=== PATIENT | male | born 1950 | race Caucasian/White ===

== ENCOUNTER 2022-08-10 15:41 | Inpatient (IN) | payer OTHER ==
[2022-08-10] MEDS: ATORVASTATIN CA 80 MG TABLET (FP) PO SCH (10:00)
[2022-08-10 16:42] VITALS: BMI 23.3
[2022-08-10] MEDS ORDERED: guaiFENesin 600 MG TABLET.ER (FP) PO PRN (18:30)
[2022-08-10] MEDS ORDERED: ACETAMINOPHEN 325 MG TABLET (FP) PO PRN (18:30)
[2022-08-10] MEDS ORDERED: LOPERAMIDE HCL 2 MG CAPSULE PO PRN (18:30)
[2022-08-10] MEDS ORDERED: POLYETHYLENE GLYCOL (HEALTHYLAX) 3350 17 GM PACKET PO PRN (18:30)
[2022-08-10] MEDS ORDERED: BENZONATATE 200 MG CAPSULE PO PRN (18:30)
[2022-08-10] MEDS ORDERED: MAGNESIUM HYDROX 2400MG/30ML ORAL SUSPENSION 30 ML CUP PO PRN (18:30)
[2022-08-10] MEDS ORDERED: NALOXONE HCL (KLOXXADO) 8 MG SPRAY NS PRN (18:30)
[2022-08-10] MEDS ORDERED: NALOXONE HCL 0.4 MG/ML VIAL IM PRN (18:30)
[2022-08-10] MEDS ORDERED: P-EPHED 60MG/TRIPROLIDI 2.5MG TABLET PO PRN (18:30)
[2022-08-10] MEDS ORDERED: BENZOCAINE/MENTHOL (CHLORASEPTIC ) LOZENGE MM PRN (18:30)
[2022-08-10] MEDS ORDERED: ONDANSETRON *ODT* 4 MG TABLET SL PRN (18:30)
[2022-08-10] MEDS ORDERED: DICYCLOMINE HCL 10 MG CAPSULE PO PRN (18:30)
[2022-08-10] MEDS ORDERED: MAG HYDROX/AL HYDROX/SIMETH 30 ML UNIT-DOSE CUP PO PRN (18:30)
[2022-08-10] MEDS: MELATONIN 5 MG TABLETS PO PRN (22:07)
[2022-08-10] MEDS: CARVEDILOL 3.125 MG TABLET (FP) PO SCH (22:07)
[2022-08-10] MEDS: THIAMINE HCL 100 MG TABLET (FP) PO SCH (22:07)
[2022-08-11] MEDS: LISINOPRIL 10 MG TABLET PO SCH (09:17)
[2022-08-11] MEDS: CARVEDILOL 3.125 MG TABLET (FP) PO SCH ×2 (09:17→21:30)
[2022-08-11] MEDS: ASPIRIN COATED 81 MG TABLET.EC PO SCH (09:17)
[2022-08-11] MEDS: PRENATAL VITAMINS W/ FOLIC ACID TABLET (FP) PO SCH (09:17)
[2022-08-11] MEDS: TAMSULOSIN HCL 0.4 MG CAP PO SCH (09:17)
[2022-08-11 11:26] LABS: HEMATOCRIT 38.6 % (35.4-49); MCH 33.3 pg (25.7-33.7); MCHC 33.7 g/dl (32.0-35.9); MEAN CELL VOLUME 98.7 fl (80-96); MEAN PLT VOLUME 8.8 fl (7.5-11.1); PLATELET COUNT 210 10^3/uL (134-434); RBC 3.91 M/mm3 (4.00-5.60); RDW 14.2 % (11.9-15.9); WHITE BLOOD COUNT 6.1 K/mm3 (4.0-10.0)
[2022-08-11 11:36] LABS: POTASSIUM 4.5 mmol/L (3.5-5.1)
[2022-08-11 11:39] LABS: ALBUMIN 3.5 g/dl (3.4-5.0); CALCIUM 9.4 mg/dL (8.5-10.1)
[2022-08-11 11:42] LABS: CREATININE 0.7 mg/dL (0.55-1.3)
[2022-08-11 11:44] LABS: BILIRUBIN,TOTAL 0.5 mg/dL (0.2-1)
[2022-08-11 18:03] VITALS: RESP 18
[2022-08-11 21:19] VITALS: TEMP 97.3
[2022-08-11] MEDS: ATORVASTATIN CA 80 MG TABLET (FP) PO SCH (21:30)
[2022-08-11] MEDS: THIAMINE HCL 100 MG TABLET (FP) PO SCH (21:30)
[2022-08-11] MEDS: MELATONIN 5 MG TABLETS PO PRN (21:32)
[2022-08-11] MEDS ORDERED: CLOPIDOGREL BISULFATE 75 MG TABLET (FP) PO SCH (22:00)
[2022-08-12] MEDS: TAMSULOSIN HCL 0.4 MG CAP PO SCH (07:32)
[2022-08-12 08:57] VITALS: BP 115/81; PULSE 60
[2022-08-12] MEDS: CARVEDILOL 3.125 MG TABLET (FP) PO SCH (09:54)
[2022-08-12] MEDS: PRENATAL VITAMINS W/ FOLIC ACID TABLET (FP) PO SCH (09:54)
[2022-08-12] MEDS: LISINOPRIL 10 MG TABLET PO SCH (09:54)
[2022-08-12] MEDS: ASPIRIN COATED 81 MG TABLET.EC PO SCH (09:54)
== END 2022-08-12 11:41 | disposition home or self-care (01) | DRG 897 ==
LOC: YASAS 15:41 → Y3N 18:45 → UNDOADMIN 18:45 → UNDODISIN 08-12 11:41
PROVIDERS: ADMIT Allergy & Immunology; ATTEND Surgery
PROC: HZ2ZZZZ Detoxification Services for Substance Abuse Treatment (ICD-10-PCS; principal; 2022-08-10)
DX: F10.20 Alcohol dependence, uncomplicated (principal); F17.210 Nicotine dependence, cigarettes, uncomplicated; I25.10 Atherosclerotic heart disease of native coronary artery without angina pectoris; I10 Essential (primary) hypertension; N40.0 Benign prostatic hyperplasia without lower urinary tract symptoms; R73.03 Prediabetes; Z88.0 Allergy status to penicillin; Z88.6 Allergy status to analgesic agent
CPT/HCPCS: 36415; 80053; 85027; 86780; C9803-CS; U0003; U0005

== ENCOUNTER 2023-11-22 12:21 | Inpatient (IN) | payer OTHER ==
[2023-11-22 14:12] VITALS: BMI 24.2
[2023-11-22] MEDS ORDERED: METHOCARBAMOL 500 MG TABLET PO PRN (17:43)
[2023-11-22] MEDS ORDERED: guaiFENesin 600 MG TABLET.ER (FP) PO PRN (17:43)
[2023-11-22] MEDS ORDERED: NALOXONE HCL 0.4 MG/ML VIAL IM PRN (17:43)
[2023-11-22] MEDS ORDERED: IBUPROFEN 600 MG TABLET (FP) PO PRN (17:43)
[2023-11-22] MEDS ORDERED: POLYETHYLENE GLYCOL (HEALTHYLAX) 3350 17 GM PACKET PO PRN (17:43)
[2023-11-22] MEDS ORDERED: BISMUTH SUBSALICYLATE 524 MG/30 ML PO PRN (17:43)
[2023-11-22] MEDS ORDERED: BENZONATATE 200 MG CAPSULE PO PRN (17:43)
[2023-11-22] MEDS ORDERED: NALOXONE (NARCAN) HCL 4 MG/0.1 ML SPRAY NS PRN (17:43)
[2023-11-22] MEDS ORDERED: LOPERAMIDE HCL 2 MG CAPSULE PO PRN (17:43)
[2023-11-22] MEDS ORDERED: MAG HYDROX/AL HYDROX/SIMETH 30 ML UNIT-DOSE CUP PO PRN (17:43)
[2023-11-22] MEDS ORDERED: ACETAMINOPHEN 325 MG TABLET (FP) PO PRN (17:43)
[2023-11-22] MEDS ORDERED: ONDANSETRON *ODT* 4 MG TABLET SL PRN (17:43)
[2023-11-22] MEDS ORDERED: MAGNESIUM HYDROX 2400MG/30ML ORAL SUSPENSION 30 ML CUP PO PRN (17:43)
[2023-11-22] MEDS ORDERED: DICYCLOMINE HCL 10 MG CAPSULE PO PRN (17:43)
[2023-11-22] MEDS ORDERED: BENZOCAINE/MENTHOL (CHLORASEPTIC ) LOZENGE MM PRN (17:43)
[2023-11-22] MEDS ORDERED: IBUPROFEN 400 MG TABLET (FP) PO PRN (17:43)
[2023-11-22] MEDS ORDERED: MELATONIN 5 MG TABLETS ONE (21:27)
[2023-11-22] MEDS: ATORVASTATIN CA 80 MG TABLET (FP) PO SCH (21:28)
[2023-11-22] MEDS: MELATONIN 5 MG TABLETS PO SCH (21:28)
[2023-11-22] MEDS: THIAMINE 100 MG TABLET PO SCH (21:28)
[2023-11-22] MEDS: CLOPIDOGREL BISULFATE 75 MG TABLET (FP) PO SCH (21:36)
[2023-11-22] MEDS: CARVEDILOL 3.125 MG TABLET (FP) PO SCH (21:41)
[2023-11-23 09:23] LABS: HEMATOCRIT 40.9 % (35.4-49); HEMOGLOBIN 14.1 GM/dL (11.7-16.9); MCH 33.8 pg (25.7-33.7); MCHC 34.4 g/dl (32.0-35.9); MEAN CELL VOLUME 98.5 fl (80-96); MEAN PLT VOLUME 8.1 fl (7.5-11.1); PLATELET COUNT 224 10^3/uL (134-434); RBC 4.15 M/mm3 (4.00-5.60); RDW 14.5 % (11.9-15.9); WHITE BLOOD COUNT 6.2 K/mm3 (4.0-10.0)
[2023-11-23 09:26] LABS: CHLORIDE 106 mmol/L (98-107); POTASSIUM 5.1 mmol/L (3.5-5.1); SODIUM 140 mmol/L (136-145)
[2023-11-23 09:38] LABS: ALBUMIN 3.5 g/dl (3.4-5.0); ANION GAP 4 mmol/L (4-13); BLOOD UREA NITROGEN 7.4 mg/dL (7-18); CALCIUM 9.3 mg/dL (8.5-10.1); CO2 30 mmol/L (21-32); GLUCOSE,RANDOM 100 mg/dL (74-106); SGOT/AST 15 U/L (15-37); SGPT/ALT 18 U/L (13-61)
[2023-11-23 09:40] LABS: BILIRUBIN,TOTAL 0.6 mg/dL (0.2-1); TOT PROT 6.6 g/dl (6.4-8.2)
[2023-11-23 09:41] LABS: ALK PHOS 63 U/L (45-117); CREATININE 0.7 mg/dL (0.55-1.3)
[2023-11-23] MEDS: ASPIRIN COATED 81 MG TABLET.EC PO SCH (10:27)
[2023-11-23] MEDS ORDERED: PRENATAL VITAMINS W/ FOLIC ACID TABLET (FP) PO ONE (10:56)
[2023-11-23] MEDS ORDERED: LISINOPRIL 10 MG TABLET ONE (10:56)
[2023-11-23] MEDS: LISINOPRIL 10 MG TABLET PO SCH (11:04)
[2023-11-23] MEDS: PRENATAL VITAMINS W/ FOLIC ACID TABLET (FP) PO SCH (11:04)
[2023-11-24] MEDS: hydrOXYzine PAMOATE 25 MG CAPSULE (FP) PO PRN (09:13)
[2023-11-24] MEDS: ACAMPROSATE CALCIUM 333 MG TABLET.DR PO SCH (22:14)
[2023-11-25] MEDS: TAMSULOSIN HCL 0.4 MG CAP PO SCH (09:16)
[2023-11-25] MEDS ORDERED: DORZOLAMIDE HCL/TIMOLOL OPHTHALMIC SOLUTION 10 ML BOTTLE OU SCH (10:00)
[2023-11-25] MEDS: TIMOLOL 0.5% OPHTHALMIC SOL 5 ML BOTTLE OU SCH (10:45)
[2023-11-25] MEDS: DORZOLAMIDE 2% HCL OPHTHALMIC SOLUTION 10 ML BOTTLE OU SCH (10:57)
[2023-11-25 18:02] VITALS: BP 146/60; PULSE 65; RESP 17; TEMP 97.7
== END 2023-11-25 18:52 | disposition other institution (70) | DRG 897 ==
LOC: YASAS 12:21 → Y6N 11-23 10:42
PROVIDERS: ADMIT Surgery; ATTEND Surgery
PROC: HZ2ZZZZ Detoxification Services for Substance Abuse Treatment (ICD-10-PCS; principal; 2023-11-23)
DX: F10.230 Alcohol dependence with withdrawal, uncomplicated (principal); F17.210 Nicotine dependence, cigarettes, uncomplicated; F41.9 Anxiety disorder, unspecified; I25.10 Atherosclerotic heart disease of native coronary artery without angina pectoris; I10 Essential (primary) hypertension; E78.5 Hyperlipidemia, unspecified; N40.0 Benign prostatic hyperplasia without lower urinary tract symptoms; Z88.0 Allergy status to penicillin
CPT/HCPCS: 36415; 80053; 80305; 80307; 85027; 86780; 87811; 93005; 93010

== ENCOUNTER 2023-11-25 20:26 | Inpatient (IN) | payer OTHER ==
[2023-11-25] MEDS ORDERED: MAGNESIUM HYDROX 2400MG/30ML ORAL SUSPENSION 30 ML CUP PO PRN (22:11)
[2023-11-25] MEDS ORDERED: guaiFENesin 600 MG TABLET.ER (FP) PO PRN (22:11)
[2023-11-25] MEDS ORDERED: IBUPROFEN 600 MG TABLET (FP) PO PRN (22:11)
[2023-11-25] MEDS ORDERED: NICOTINE POLACRILEX 2 MG GUM BUC PRN (22:11)
[2023-11-25] MEDS ORDERED: BENZOCAINE/MENTHOL (CHLORASEPTIC ) LOZENGE MM PRN (22:11)
[2023-11-25] MEDS ORDERED: LOPERAMIDE HCL 2 MG CAPSULE PO PRN (22:11)
[2023-11-25] MEDS ORDERED: NICOTINE POLACRILEX 2 MG LOZENGE BC PRN (22:11)
[2023-11-25] MEDS ORDERED: NALOXONE HCL 0.4 MG/ML VIAL IVPUSH PRN (22:11)
[2023-11-25] MEDS ORDERED: ACETAMINOPHEN 325 MG TABLET (FP) PO PRN (22:11)
[2023-11-25] MEDS ORDERED: P-EPHED 60MG/TRIPROLIDI 2.5MG TABLET PO PRN (22:11)
[2023-11-25] MEDS ORDERED: BENZONATATE 200 MG CAPSULE PO PRN (22:11)
[2023-11-25] MEDS ORDERED: POLYETHYLENE GLYCOL (HEALTHYLAX) 3350 17 GM PACKET PO PRN (22:11)
[2023-11-25] MEDS ORDERED: NALOXONE (NARCAN) HCL 4 MG/0.1 ML SPRAY NS PRN (22:11)
[2023-11-25] MEDS ORDERED: IBUPROFEN 400 MG TABLET (FP) PO PRN (22:11)
[2023-11-25] MEDS ORDERED: MAG HYDROX/AL HYDROX/SIMETH 30 ML UNIT-DOSE CUP PO PRN (22:11)
[2023-11-25] MEDS: MELATONIN 5 MG TABLETS PO SCH (23:00)
[2023-11-25] MEDS: CARVEDILOL 3.125 MG TABLET (FP) PO SCH (23:03)
[2023-11-26] MEDS: TAMSULOSIN HCL 0.4 MG CAP PO SCH (07:52)
[2023-11-26] MEDS: PRENATAL VITAMINS W/ FOLIC ACID TABLET (FP) PO SCH (10:03)
[2023-11-26] MEDS: LISINOPRIL 10 MG TABLET PO SCH (10:03)
[2023-11-26] MEDS: ASPIRIN COATED 81 MG TABLET.EC PO SCH (10:03)
[2023-11-26] MEDS: DORZOLAMIDE HCL/TIMOLOL OPHTHALMIC SOLUTION 10 ML BOTTLE OU SCH (10:04)
[2023-11-26] MEDS ORDERED: ATORVASTATIN CA 40 MG TABLET (FP) ONE (20:23)
[2023-11-26] MEDS: ATORVASTATIN CA 80 MG TABLET (FP) PO SCH (21:32)
[2023-11-26] MEDS: CLOPIDOGREL BISULFATE 75 MG TABLET (FP) PO SCH (21:32)
[2023-11-26] MEDS: THIAMINE 100 MG TABLET PO SCH (21:32)
[2023-11-27] MEDS ORDERED: ATORVASTATIN CA 40 MG TABLET (FP) ONE (21:03)
[2023-11-28] MEDS ORDERED: ATORVASTATIN CA 40 MG TABLET (FP) ONE (20:32)
[2023-11-29] MEDS ORDERED: ATORVASTATIN CA 40 MG TABLET (FP) ONE (21:11)
[2023-11-30] MEDS ORDERED: ATORVASTATIN CA 40 MG TABLET (FP) ONE (20:49)
[2023-12-01 06:30] VITALS: RESP 18; TEMP 97
[2023-12-01 09:38] VITALS: BP 126/60; PULSE 90
== END 2023-12-01 10:50 | disposition home or self-care (01) | DRG 895 ==
LOC: YASAS 20:26 → Y3NR 20:28 → Y5N 11-26 14:28
PROVIDERS: ADMIT Psychiatry & Neurology Pain Medicine; ATTEND Psychiatry & Neurology Pain Medicine
PROC: HZ42ZZZ Group Counseling for Substance Abuse Treatment, Cognitive-Behavioral (ICD-10-PCS; principal; 2023-11-25)
DX: F10.20 Alcohol dependence, uncomplicated (principal); F41.9 Anxiety disorder, unspecified; I25.10 Atherosclerotic heart disease of native coronary artery without angina pectoris; I10 Essential (primary) hypertension; E78.5 Hyperlipidemia, unspecified; N40.0 Benign prostatic hyperplasia without lower urinary tract symptoms